=== PATIENT | male | born 1990 | race Caucasian/White ===

== ENCOUNTER 2021-06-09 20:03 | Emergency (ER) | payer OTHER ==
[~2021-06-09] VITALS: Ht 170.2 cm; Wt 65.3 kg
[2021-06-09 20:16] VITALS: BP 125/84
--- NOTE | 2021-06-09 20:24 | NUR ---
PT AMBULATORY TO BED 05.
--- NOTE | 2021-06-09 20:55 | NUR ---
31 Y/O M BIB SELF FOR ABD PAIN . PT HAS HAD A FEW EPISODES OF DIARRHEA AND SOME NAUSEA. PT DENIES F/V/SOB/ CHEST PAIN. PT STATED HE WENT [place] AND ATE OYSTERS AND A BUNCH OF DIFFERENT FOODS. PT STARTED TO FEEL SICK BUT HAD TO WAIT TO COME TO DR DUE TO INSURANCE. PT THINKS POSSIBLE FOOD POISONING. SKIN IS PINK/WARM/DRY; AAOX4 WITH EVEN AND STEADY GAIT ALLERGIES: SEASONAL RX: TUMS AND CBD GUMMIES
--- NOTE | 2021-06-09 21:19 | NUR ---
Dr. Finnegan examining patient.
--- NOTE | 2021-06-09 21:56 | NUR ---
PT SITTING IN CHAIR. ALL NEEDS MET AT THIS TIME
[2021-06-09] MEDS ORDERED: CIPR500T4 PO (22:04)
[2021-06-09 22:14] VITALS: BP 125/84
--- NOTE | 2021-06-09 22:14 | NUR ---
Patient discharged with v/s stable. Written and verbal after care instructions given and explained. Patient alert, oriented and verbalized understanding of instructions. Ambulatory with steady gait. All questions addressed prior to discharge. ID band removed. Patient advised to follow up with PMD. Rx of CIPRO given. Opportunity to ask questions provided and answered.
--- NOTE | 2021-06-09 22:14 | NUR ---
The patient's care was reviewed and supervised by Jimena Ornelas RN.
== END 2021-06-09 22:14 | disposition home or self-care (01) ==
LOC: MED 20:03
DX: R19.7 Diarrhea, unspecified (principal); R10.13 Epigastric pain; Z91.09 Other allergy status, other than to drugs and biological substances
CPT/HCPCS: 99283